=== PATIENT | male | born 2000 | race Caucasian/White ===

== ENCOUNTER 2024-02-17 20:35 | Emergency (ER) | payer BC, SELFPAY ==
[2024-02-17 20:50] VITALS: BP 150/88; PULSE 110; TEMP 37.3; O2SAT 98; BMI 46.1
--- NOTE | 2024-02-17 21:07 | ED_ITS ---
HPI - GI Bleed General Chief complaint: GI Bleed Stated complaint: Blood in Stool Time Seen by Provider: 02/17/24 21:00 Source: patient Mode of arrival: walk-in Limitations: no limitations History of Present Illness HPI Narrative: presents complaining blood from rectum after having a BM. States first noticed small amount of blood after BM about a month ago. Shameka experienced abdominal cramping and had BM and passed a larger amount of blood. After arriving here went to bathroom and had another BM but this time a small amount of blood. No vomiting or fever. Related Data Home Medications ?Medication ?Instructions ?Recorded ?Confirmed No Known Home Medications 02/17/24 02/17/24 Allergies Allergy/AdvReac Type Severity Reaction Status Date / Time No Known Drug Allergies Allergy Verified 02/17/24 20:50 Review of Systems ROS Status of ROS 10 or more systems reviewed and unremark able except as noted in history and below Exam Constitutional Vital Signs, click to edit/add: Last Vital Signs Temp 99.1 F 02/17/24 20:50 Pulse 108 H 02/17/24 22:25 Resp 16 02/17/24 22:25 BP 134/84 02/17/24 22:25 Pulse Ox 99 02/17/24 22:25 O2 Del Method Room Air 02/17/24 22:25 Common normals: no apparent distress, average body habitus, oriented x3, no limitations, healthy appearing, alert and well nourished [facility] Common normals: normocephalic and head/scalp atraumatic Eye Common normals: EOMs intact bilaterally Respiratory Common normals: normal respiratory effort, no retractions, no use of accessory muscles and clear to auscultation bilaterally Cardio Common normals: regular rate, regular rhythm, S1 normal heart sound and S2 normal heart sound GI Common normals: Normal to inspection, nondistended, normoactive bowel sounds present, soft to palpation and non-tender Extremity Common normals: normal to inspection and full ROM Neuro Common normals: oriented x3, CN's II-XII intact bilaterally, moves all extremities and no focal motor deficits Psych Appearance: grossly normal Course Vital Signs Vital signs: Vital Signs Temperature 99.1 F 02/17/24 20:50 Pulse Rate 110 H 02/17/24 20:50 Respiratory Rate 18 02/17/24 20:50 Blood Pressure 150/88 H 02/17/24 20:50 Pulse Oximetry 98 02/17/24 20:50 Oxygen Delivery Method Room Air 02/17/24 20:50 Temperature 99.1 F 02/17/24 20:50 Pulse Rate 108 H 02/17/24 22:25 Respiratory Rate 16 02/17/24 22:25 Blood Pressure 134/84 02/17/24 22:25 Pulse Oximetry 99 02/17/24 22:25 Oxygen Delivery Method Room Air 02/17/24 22:25 MDM - GI Bleed MDM Narrative Medical decision making narrative: patient presented complaining of blood per rectum. First noticed small amount about one month ago and occ since then. Tonight increased amount of blood that concerned him. After he arrived to the ER he had another BM and now there was very little blood again. No abdominal pain. CBC WNL. CT with findings of colitis. Patient medicated with flagyl and cipro and discharged home. Advised to follow up with his doctor as he will likely require colonoscopy as part of the workup Lab Data Labs: Lab Results 02/17/24 Range/Units 21:20 WBC 7.3 (4.0-11.0) 10^3/uL RBC 5.28 (4.70-6.10) 10^6/uL Hgb 15.2 (14.0-18.0) g/dL Hct 43.0 (42.0-54.0) % MCV 81.4 (80.0-94.0) fL MCH 28.8 (25.9-34.0) pg MCHC 35.3 H (29.9-35.2) g/dL RDW 12.7 (11.0-15.0) % Plt Count 288 (150-450) 10^3/uL MPV 9.1 L (9.5-13.5) fL Neut % (Auto) 54.8 (43.0-75.0) % Lymph % (Auto) 32.8 (20.5-60.0) % Vermilion % (Auto) 8.5 (1.7-12.0) % Eos % (Auto) 3.0 (0.9-7.0) % Baso % (Auto) 0.8 (0.2-2.0) % Neut # (Auto) 4.0 (1.4-6.5) 10^3/uL Lymph # (Auto) 2.4 (1.2-3.8) 10^3/uL Vermilion # (Auto) 0.6 (0.3-0.8) 10^3/uL Eos # (Auto) 0.2 (0.0-0.7) 10^3/uL Baso # (Auto) 0.1 (0.0-0.1) 10^3/uL Abs Immat Gran (auto) 0.01 (0.00-0.03) 10^3/uL Imm/Tot Granulo (auto) 0.1 (0.0-0.5) % Sodium 141 (136-145) mmol/L Potassium 3.6 (3.5-5.1) mmol/L Chloride 105 (98-107) mmol/L Carbon Dioxide 25.1 (21.0-32.0) mmol/L Anion Gap 14.5 BUN 13.0 (7.0-18.0) mg/dL Creatinine 0.85 (0.70-1.30) mg/dL Est GFR ( Amer) >60 (>=60) Est GFR (Non-Af Amer) >60 (>=60) BUN/Creatinine Ratio 15.3 Glucose 95 (74-106) mg/dL Calcium 8.9 (8.5-10.1) mg/dL Total Bilirubin 0.5 (0.2-1.0) mg/dL AST 14 L (15-37) U/L ALT 51 (16-63) U/L Alkaline Phosphatase 86 (46-116) U/L Total Protein 6.9 (6.4-8.2) g/dL Albumin 3.7 (3.4-5.0) g/dL Globulin 3.2 g/dL Albumin/Globulin Ratio 1.2 Imaging Data Abdominal x-ray: Radiologist's impression: ITS Impressions Abdomen/Pelvis CT 02/17/24 21:08 IMPRESSION: There is faint pericolonic fat stranding associated with the descending colon concerning for early acute colitis. Electronically authenticated by: VIC NAVARRO Date: 02/17/2024 23:07 Discharge Plan Discharge Stand Alone Forms: Portal Instructions Chief Complaint: GI Bleed Clinical Impression: Colitis Patient Disposition: Home, Self-Care Condition: Good Mode of Transportation: Private Vehicle Prescriptions / Home Meds: No Action No Known Home Medications Print Language: Kyrgyz Instructions: Colitis (ED) Additional Instructions: follow up with your doctor next week. Return if bleeding worsens Referrals: AGUILA ALVARADO [Primary Care Provider] - 1 week Discharge Date/Time: 02/17/24 23:45
--- NOTE | 2024-02-17 21:08 | CT_ITS ---
The [address] [address] Patient Name: SANDY METZGER MRN: [id number] date: 2000 Sex: M Assigned Patient Location: ER Current Patient Location: ED.MAIN Accession/Order Number: [id number] Exam Date: 02/17/2024 22:15 Report Date: 02/17/2024 23:07 At the request of: FRANKIE CUMMINGS Procedure: CT abdomen pelvis wo con EXAMINATION:CT abdomen pelvis wo con INDICATION:rectal bleed COMPARISON:None TECHNIQUE:Multiple thin section transaxial slices were acquired through the abdomen and pelvis without intravenous contrast. Coronal and sagittal reconstructed images were reviewed. Oral contrastWas not administered. FINDINGS: LOWER CHEST: The lower chest is unremarkable. LIVER: The liver is unremarkable. GALLBLADDER AND BILIARY SYSTEM: No obvious ductal dilation. No calcified stones. SPLEEN: The spleen is unremarkable. PANCREAS: The pancreas is unremarkable. ADRENAL GLANDS: The adrenal glands are unremarkable. KIDNEYS AND URETERS: There is no hydronephrosis of the kidneys.No obstructing urologic calcifications are present. VASCULATURE: Vascularity is unremarkable. PERITONEUM/RETROPERITONEUM: Peritoneum/retroperitoneum is unremarkable. LYMPH NODES: No suspicious lymphadenopathy. GASTROINTESTINAL TRACT: The bowel is normal in caliber.There is faint pericolonic fat stranding of the descending colon. This may represent mild colitis.The appendix is visualized and is not inflamed. BLADDER: The urinary bladder is unremarkable. REPRODUCTIVE SYSTEM: Reproductive system is unremarkable. BODY WALL: There is a tiny fat-containing umbilical hernia. BONES: Osseous structures are unremarkable. CT/CT abdomen pelvis wo con IMPRESSION: There is faint pericolonic fat stranding associated with the descending colon concerning for early acute colitis. Electronically authenticated by: VIC NAVARRO Date: 02/17/2024 23:07
[2024-02-17 21:28] LABS: Basophils Absolute Auto 0.1 10^3/uL (0.0-0.1); Basophils Percent Auto 0.8 % (0.2-2.0); Eosinophils Absolute Auto 0.2 10^3/uL (0.0-0.7); Hemoglobin 15.2 g/dL (14.0-18.0); Immature Granulocytes Abs Auto 0.01 10^3/uL (0.00-0.03); Immature Granulocytes Pct Auto 0.1 % (0.0-0.5); Lymphocytes Absolute Auto 2.4 10^3/uL (1.2-3.8); Lymphocytes Percent Auto 32.8 % (20.5-60.0); Mean Corpuscular HGB Conc 35.3 g/dL (29.9-35.2); Mean Corpuscular Hemoglobin 28.8 pg (25.9-34.0); Mean Corpuscular Volume 81.4 fL (80.0-94.0); Mean Platelet Volume 9.1 fL (9.5-13.5); Monocytes Absolute Auto 0.6 10^3/uL (0.3-0.8); Monocytes Percent Auto 8.5 % (1.7-12.0); Neutrophils Percent Auto 54.8 % (43.0-75.0); Platelet Count 288 10^3/uL (150-450); Red Blood Count 5.28 10^6/uL (4.70-6.10); Red Cell Distribution Width 12.7 % (11.0-15.0); White Blood Count 7.3 10^3/uL (4.0-11.0)
[2024-02-17 21:44] LABS: Alanine Aminotransferase 51 U/L (16-63); Albumin Globulin Ratio 1.2; Albumin Level 3.7 g/dL (3.4-5.0); Alkaline Phosphatase 86 U/L (46-116); Anion Gap 14.5; Aspartate Amino Transferase 14 U/L (15-37); BUN Creatinine Ratio 15.3; Bilirubin Total 0.5 mg/dL (0.2-1.0); Calcium 8.9 mg/dL (8.5-10.1); Carbon Dioxide 25.1 mmol/L (21.0-32.0); Chloride 105 mmol/L (98-107); Estimated GFR (African America >60 (>=60); Estimated GFR (Non-African Ame >60 (>=60); Globulin 3.2 g/dL; Glucose 95 mg/dL (74-106); Potassium 3.6 mmol/L (3.5-5.1); Sodium 141 mmol/L (136-145); Total Protein 6.9 g/dL (6.4-8.2)
[2024-02-17 22:25] VITALS: BP 134/84; PULSE 108; O2SAT 99
[2024-02-17] MEDS: METRONIDAZOLE 250 MG TABLET 500 MG PO (23:39)
[2024-02-17] MEDS: CIPROFLOXACIN HCL 500 MG TABLET PO (23:40)
== END 2024-02-17 23:45 | disposition home or self-care (01) ==
PROVIDERS: Emergency Provider Internal Medicine; PCP Family Medicine
DX: K52.9 Noninfective gastroenteritis and colitis, unspecified (principal)
CPT/HCPCS: 36415; 74176; 80053; 85025; 99284

== ENCOUNTER 2024-04-26 02:10 | Emergency (ER) | payer BC, SELFPAY ==
[2024-04-26 02:13] VITALS: BP 148/94; PULSE 105; TEMP 36.8; O2SAT 98; BMI 44.9
--- OUTSIDE RECORDS SUMMARY | 2024-04-26 02:15 | XMS_ITS | CCD ---
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 d)Ordered By: PROVIDER TEMP on 07-27-2022 Lymphocytes/100 WBC (Bld) 15.5 % . [facility] MCH Auto (RBC) [Entitic mass ]Ordered By: PROVIDER TEMP on 07-27-2022 MCH (RBC) [Entitic mass] 29.9 pg 27.5-35.2 [facility] MCHC Auto (RBC) [Mass/Vol]Or dered By: PROVIDER TEMP on 07-27-2022 MCHC (RBC) [Mass/Vol] 34.5 g/dL 32.5-35.6 [facility] MCV Auto (RBC) [Entitic vol] Ordered By: PROVIDER TEMP on 07-27-2022 MCV (RBC) [Entitic vol] 86.5 fL 83.5-101 F [facility] Monocyte distribution width [Entitic volume] in Blood by AutomatedOrdered By: PROVIDER TEMP on 07-27-2022 Monocyte distribution width Auto (Bld) [Entitic vol] 17.12 % 0.00-20.00 [facility] Monocytes Auto (Bld) [#/Vol] Ordered By: PROVIDER TEMP on 07-27-2022 Monocytes (Bld) [#/Vol] 0.7 10*3/uL 0.0-0.8 [facility] Monocytes/100 WBC Auto (Bld) Ordered By: PROVIDER TEMP on 07-27-2022 Monocytes/100 WBC (Bld) 7.2 % . [facility] Neutrophils Auto (Bld) [#/Vo l]Ordered By: PROVIDER TEMP on 07-27-2022 Neutrophils (Bld) [#/Vol] 7.6 10*3/uL 1.8-7.7 [facility] Neutrophils/100 WBC Auto (Bl d)Ordered By: PROVIDER TEMP on 07-27-2022 Neutrophils/100 WBC (Bld) 75.9 % . [facility] Nitrite Test strip Ql (U)Ord ered By: Yoandy Tam on 07-27-2022 Nitrite Ql (U) Negative Negative [facility] No Panel InformationOrdered By: PROVIDER TEMP on 07-27-2022 Estimated GFR () > 60 mL/Min [facility] Comment on above: GFR estimated refere nce range: According to KDOQI guidelines, <60 ml/min/1.73m2 is sufficient to diagnose a patient with chronic kidney disease. Pharmacy Creatinine Clearance (Chem 201.93 [facility] Nucleated erythrocytes [Pres ence] in Blood by Automated countOrdered By: PROVIDER TEMP on 07-27-2022 Nucleated RBC Auto Ql (Bld) 0.0 /100{WBC} 0-0.5 [facility] Phencyclidine Screen Ql (U)O rdered By: PROVIDER TEMP on 07-27-2022 Phencyclidine Ql (U) Negative Negative [facility] Platelet mean volume Auto (B ld) [Entitic vol]Ordered By: PROVIDER TEMP on 07-27-2022 Platelet mean volume (Bld) [Entitic vol] 7.7 fL 6.6-10.1 [facility] Platelets Auto (Bld) [#/Vol] Ordered By: PROVIDER TEMP on 07-27-2022 Platelets (Bld) [#/Vol] 277 10*3/uL 150-450 [facility] Protein Auto test strip (U) [Mass/Vol]Ordered By: Yoandy Tam on 07-27-2022 Protein (U) [Mass/Vol] Trace mg/dL Negative F [facility] Protein [Mass/volume] in Ser um or PlasmaOrdered By: PROVIDER TEMP on 07-27-2022 Protein [Mass/Vol] 7.3 g/dL 6.1-7.9 [facility] RBC Auto (Bld) [#/Vol]Ordere d By: PROVIDER TEMP on 07-27-2022 RBC (Bld) [#/Vol] 5.54 10*6/uL 3.90-5.60 [facility] Serum or plasma alanine klein otransferase measurement without P-5'-P (enzymatic activiOrdered By: PROVIDER TEMP on 07-27-2022 ALT No additional P-5'-P [Catalytic activity/Vol] 25 U/L 10-60 [facility] Serum or plasma albumin/glob ulin mass ratioOrdered By: PROVIDER TEMP on 07-27-2022 Albumin/Globulin [Mass ratio] 1.7 {ratio} [facility] Serum or plasma alkaline brandt sphatase measurement (enzymatic activity/volume)Ordered By: PROVIDER TEMP on 07-27-2022 ALP [Catalytic activity/Vol] 61 U/L 32-92 [facility] Serum or plasma anion gap de terminationOrdered By: PROVIDER TEMP on 07-27-2022 Anion gap [Moles/Vol] 16.4 mmol/L 6.0-15.0 [facility] Serum or plasma aspartate am inotransferase measurement (enzymatic activity/volume)Ordered By: PROVIDER TEMP on 07-27-2022 AST [Catalytic activity/Vol] 20 U/L 10-42 [facility] Serum or plasma calcium pearl urement (mass/volume)Ordered By: PROVIDER TEMP on 07-27-2022 Calcium [Mass/Vol] 9.7 mg/dL 8.2-10.2 [facility] Serum or plasma chloride casie surement (moles/volume)Ordered By: PROVIDER TEMP on 07-27-2022 Chloride [Moles/Vol] 103 mmol/L 95-114 [facility] Serum or plasma creatine kin ase MB (CKMB)/total creatine kinase (CK) ratio by calculaOrdered By: PROVIDER TEMP on 07-27-2022 CK.MB Calc [Catalytic fraction] 1.7 % 0.00-2.50 [facility] Serum or plasma creatine kin ase MB measurement (mass/volume)Ordered By: PROVIDER TEMP on 07-27-2022 CK.MB [Mass/Vol] 2.3 ng/mL 0.6-6.3 [facility] Serum or plasma glucose pearl urement (mass/volume)Ordered By: PROVIDER TEMP on 07-27-2022 Glucose [Mass/Vol] 101 mg/dL 70-100 [facility] Comment on above: ADA recommended refe rence rangeRandom Glucose Reference Range is dependent on time and content of last meal. Glucose of more than 200 mg/dL in a nonstressed, ambulatory subject supports the diagnosis of Diabetes Mellitus. Serum or plasma potassium me asurement (moles/volume)Ordered By: PROVIDER TEMP on 07-27-2022 Potassium [Moles/Vol] 3.0 mmol/L 3.5-5.1 [facility] Serum or plasma sodium measu rement (moles/volume)Ordered By: PROVIDER TEMP on 07-27-2022 Sodium [Moles/Vol] 137 mmol/L 136-146 [facility] Serum or plasma total biliru bin measurement (mass/volume)Ordered By: PROVIDER TEMP on 07-27-2022 Bilirubin [Mass/Vol] 0.6 mg/dL 0.3-1.2 [facility] Serum or plasma total carbon dioxide measurement (moles/volume)Ordered By: PROVIDER TEMP on 07-27-2022 CO2 [Moles/Vol] 20.6 mmol/L 22.0-30.0 [facility] Serum or plasma urea nitroge n measurement (mass/volume)Ordered By: PROVIDER TEMP on 07-27-2022 Urea nitrogen [Mass/Vol] 8 mg/dL 9-23 [facility] Specific gravity Auto test s trip (U) [Rel density]Ordered By: Yoandy Tam on 07-27-2022 Specific gravity (U) [Rel density] 1.023 1.001-1.030 [facility] Squamous epithelial cells de tection in urine sediment by light microscopyOrdered By: Yoandy Tam on 07-27-2022 Epithelial cells.squamous LM Ql (Urine sed) None seen [HPF] 0-2 [facility] Troponin I.cardiac [Mass/vol ume] in Serum or Plasma by High sensitivity methodOrdered By: [facility]ER [facility] on [facility]22 Troponin I.cardiac High sensitivity method [Mass/Vol] 4 pg/mL 0-20 [facility] Urine bacteria detection by automated methodOrdered By: Yoandy Tam on 07-27-2022 Bacteria Auto Ql (U) None seen None Seen [facility] Urine clarity by refractomet ry automatedOrdered By: Yoandy Tam on 07-27-2022 Clarity Refractometry automated (U) Clear Clear [facility] Urine cocaine detectionOrder ed By: PROVIDER GHISLAINE on 07-27-2022 Cocaine Ql (U) Negative Negative [facility] Urine glucose measurement by automated test strip (mass/volume)Ordered By: Yoandy Tam on 07-27-2022 Glucose Auto test strip (U) [Mass/Vol] Normal mg/dL Normal [facility] Urine hemoglobin detection b y automated test stripOrdered By: Yoandy Tam on 07-27-2022 Hemoglobin Auto test strip Ql (U) Negative Negative [facility] Urine leukocyte esterase det ection by automated test stripOrdered By: Yoandy Tam on 07-27-2022 Leukocyte esterase Auto test strip Ql (U) Negative Negative [facility] Urobilinogen Auto test strip (U) [Mass/Vol]Ordered By: Yoandy Tam on 07-27-2022 Urobilinogen (U) [Mass/Vol] Normal mg/dL Normal [facility] WBC Auto (Bld) [#/Vol]Ordere d By: PROVIDER GHISLAINE on 07-27-2022 WBC (Bld) [#/Vol] 10.0 10*3/uL 4.1-10.5 [facility] pH Auto test strip (U)Ordere d By: Yoandy Tam on 07-27-2022 pH (U) 8.5 [pH] 5.0-9.0 [facility] Albumin [Mass/volume] in Ser um or PlasmaOrdered By: Scotty Tabares on 07-02-2022 Albumin [Mass/Vol] 4.2 g/dL 3.2-5.5 [facility] Basophils Auto (Bld) [#/Vol] Ordered By: Scotty Tabares on 07-02-2022 Basophils (Bld) [#/Vol] 0.1 10*3/uL 0.0-0.2 [facility] Basophils/100 WBC Auto (Bld) Ordered By: Scotty Tabares on 07-02-2022 Basophils/100 WBC (Bld) 0.7 % . [facility] COVID + FLU Quick Testingon 07-02-2022 SARS-CoV-2 (COVID-19) RNA LEOPOLDO+probe Ql (Unsp spec) Negative [employer] Other COVID + FLU Quick Testing Negative [employer] Other Cholesterol [Mass/volume] in Serum or PlasmaOrdered By: Scotty Tabares on 07-02-2022 Cholesterol [Mass/Vol] 162 mg/dL 140-200 [facility] Comment on above: Chol less than 200 m g/dl low riskChol 201-239 mg/dl borderline riskChol 240 mg/dl and greater high risk Cholesterol in LDL Calc [Mas s/Vol]Ordered By: Scotty Tabares on 07-02-2022 Cholesterol in LDL [Mass/Vol] 95 mg/dL 0-100 [facility] Comment on above: LDL ATP III CLASSIFI CATIONLDL less than 100 mg/dL OptimalLDL 100-129 mg/dL Near or above optimalLDL 130-159 mg/dL Borderline highLDL 160-189 mg/dL HighLDL greater than 189 mg/dL Very high Cholesterol in VLDL Calc [Ma ss/Vol]Ordered By: Scotty Tabares on 07-02-2022 Cholesterol in VLDL [Mass/Vol] 16 mg/dL [facility] Creatinine and Glomerular fi ltration rate.predicted panel (S/P/Bld)Ordered By: Scotty Tabares on 07-02-2022 Creatinine [Mass/Vol] 0.77 mg/dL 0.64-1.27 [facility] Eosinophils Auto (Bld) [#/Vo l]Ordered By: Scotty Tabares on 07-02-2022 Eosinophils (Bld) [#/Vol] 0.1 10*3/uL 0.0-0.45 [facility] Eosinophils/100 WBC Auto (Bl d)Ordered By: Scotty Tabares on 07-02-2022 Eosinophils/100 WBC (Bld) 1.3 % . [facility] Erythrocyte distribution wid th Auto (RBC) [Ratio]Ordered By: Scotty Tabares on 07-02-2022 Erythrocyte distribution width (RBC) [Ratio] 13.8 % 12.0-14.8 [facility] Estimated glomerular filtrat ion rate (GFR) non- AmericanOrdered By: Scotty Tabares on 07-02-2022 GFR/1.73 sq M.predicted among non-blacks MDRD (S/P/Bld) [Vol rate/Area] > 60 mL/Min [facility] Globulin Calc (S) [Mass/Vol] Ordered By: Scotty Tabares on 07-02-2022 Globulin (S) [Mass/Vol] 2.7 g/dL [facility] Hematocrit Auto (Bld) [Volum e fraction]Ordered By: Scotty Tabares on 07-02-2022 Hematocrit (Bld) [Volume fraction] 47.3 % 38.8-50.0 [facility] Hemoglobin [Mass/volume] in BloodOrdered By: Scotty Tabares on 07-02-2022 Hemoglobin (Bld) [Mass/Vol] 16.2 g/dL 13.0-17.0 [facility] Leukocytes [#/volume] correc suzi for nucleated erythrocytes in Blood by Automated counOrdered By: Scotty Tabares on 07-02-2022 WBC corrected for nucl RBC Auto (Bld) [#/Vol] 8.0 10*3/uL 4.1-10.5 [facility] Lymphocytes Auto (Bld) [#/Vo l]Ordered By: Scotty Tabares on 07-02-2022 Lymphocytes (Bld) [#/Vol] 2.0 10*3/uL 1.00-4.8 [facility] Lymphocytes/100 WBC Auto (Bl d)Ordered By: Scotty Tabares on 07-02-2022 Lymphocytes/100 WBC (Bld) 25.0 % . [facility] MCH Auto (RBC) [Entitic mass ]Ordered By: Scotty Tabares on 07-02-2022 MCH (RBC) [Entitic mass] 29.9 pg 27.5-35.2 [facility] MCHC Auto (RBC) [Mass/Vol]Or dered By: Scotty Tabares on 07-02-2022 MCHC (RBC) [Mass/Vol] 34.2 g/dL 32.5-35.6 [facility] MCV Auto (RBC) [Entitic vol] Ordered By: Scotty Tabares on 07-02-2022 MCV (RBC) [Entitic vol] 87.3 fL 83.5-101 F [facility] Monocytes Auto (Bld) [#/Vol] Ordered By: Scotty Tabares on 07-02-2022 Monocytes (Bld) [#/Vol] 0.5 10*3/uL 0.0-0.8 [facility] Monocytes/100 WBC Auto (Bld) Ordered By: Scotty Tabares on 07-02-2022 Monocytes/100 WBC (Bld) 6.2 % . [facility] Neutrophils Auto (Bld) [#/Vo l]Ordered By: Scotty Tabares on 07-02-2022 Neutrophils (Bld) [#/Vol] 5.3 10*3/uL 1.8-7.7 [facility] Neutrophils/100 WBC Auto (Bl d)Ordered By: Scotty Tabares on 07-02-2022 Neutrophils/100 WBC (Bld) 66.8 % . [facility] No Panel InformationOrdered By: Scotty Tabares on 07-02-2022 Estimated GFR () > 60 mL/Min [facility] Comment on above: GFR estimated refere nce range: According to KDOQI guidelines, <60 ml/min/1.73m2 is sufficient to diagnose a patient with chronic kidney disease. Pharmacy Creatinine Clearance (Chem N/A [facility] Nucleated erythrocytes [Pres ence] in Blood by Automated countOrdered By: Scotty Tabares on 07-02-2022 Nucleated RBC Auto Ql (Bld) 0.1 /100{WBC} 0-0.5 [facility] Platelet mean volume Auto (B ld) [Entitic vol]Ordered By: Scotty Tabares on 07-02-2022 Platelet mean volume (Bld) [Entitic vol] 7.9 fL 6.6-10.1 [facility] Platelets Auto (Bld) [#/Vol] Ordered By: Scotty Tabares on 07-02-2022 Platelets (Bld) [#/Vol] 292 10*3/uL 150-450 [facility] Protein [Mass/volume] in Ser um or PlasmaOrdered By: Scotty Tabares on 07-02-2022 Protein [Mass/Vol] 6.9 g/dL 6.1-7.9 [facility] RBC Auto (Bld) [#/Vol]Ordere d By: Scotty Tabares on 07-02-2022 RBC (Bld) [#/Vol] 5.41 10*6/uL 3.90-5.60 [facility] Serum or plasma alanine klein otransferase measurement without P-5'-P (enzymatic activiOrdered By: Scotty Tabares on 07-02-2022 ALT No additional P-5'-P [Catalytic activity/Vol] 25 U/L 10-60 [facility] Serum or plasma albumin/glob ulin mass ratioOrdered By: Scotty Tabares on 07-02-2022 Albumin/Globulin [Mass ratio] 1.6 {ratio} [facility] Serum or plasma alkaline brandt sphatase measurement (enzymatic activity/volume)Ordered By: Scotty Tabares on 07-02-2022 ALP [Catalytic activity/Vol] 71 U/L 32-92 [facility] Serum or plasma anion gap de terminationOrdered By: Scotty Tabares on 07-02-2022 Anion gap [Moles/Vol] 9.9 mmol/L 6.0-15.0 [facility] Serum or plasma aspartate am inotransferase measurement (enzymatic activity/volume)Ordered By: Scotty Tabares on 07-02-2022 AST [Catalytic activity/Vol] 20 U/L 10-42 [facility] Serum or plasma calcium pearl urement (mass/volume)Ordered By: Scotty Tabares on 07-02-2022 Calcium [Mass/Vol] 9.5 mg/dL 8.2-10.2 [facility] Serum or plasma chloride casie surement (moles/volume)Ordered By: Scotty Tabares on 07-02-2022 Chloride [Moles/Vol] 106 mmol/L 95-114 [facility] Serum or plasma glucose pearl urement (mass/volume)Ordered By: Scotty Tabares on 07-02-2022 Glucose [Mass/Vol] 92 mg/dL 70-100 [facility] Comment on above: ADA recommended refe rence rangeRandom Glucose Reference Range is dependent on time and content of last meal. Glucose of more than 200 mg/dL in a nonstressed, ambulatory subject supports the diagnosis of Diabetes Mellitus. Serum or plasma high density lipoprotein (HDL) cholesterol measurementOrdered By: Scotty Tabares on 07-02-2022 Cholesterol in HDL [Mass/Vol] 51 mg/dL 29-71 [facility] Comment on above: HDL CHOL ATP-III CLA SSIFICATION Cardiovascular RiskHDL > or equal to 60 mg/dL LOWHDL < 40 mg/dL HIGH Serum or plasma potassium me asurement (moles/volume)Ordered By: Scotty Tabares on 07-02-2022 Potassium [Moles/Vol] 4.3 mmol/L 3.5-5.1 [facility] Serum or plasma sodium measu rement (moles/volume)Ordered By: Scotty Tabares on 07-02-2022 Sodium [Moles/Vol] 139 mmol/L 136-146 [facility] Serum or plasma total biliru bin measurement (mass/volume)Ordered By: Scotty Tabares on 07-02-2022 Bilirubin [Mass/Vol] 0.5 mg/dL 0.3-1.2 [facility] Serum or plasma total carbon dioxide measurement (moles/volume)Ordered By: Scotty Tabares on 07-02-2022 CO2 [Moles/Vol] 27.4 mmol/L 22.0-30.0 [facility] Serum or plasma total choles terol/high density lipoprotein (HDL) cholesterol mass ratOrdered By: Scotty Tabares on 07-02-2022 Cholesterol.total/Karina sterol in HDL [Mass ratio] 3.2 {ratio} <5.0 [facility] Serum or plasma urea nitroge n measurement (mass/volume)Ordered By: Scotty Tabares on 07-02-2022 Urea nitrogen [Mass/Vol] 11 mg/dL 9-23 [facility] TSH DL <= 0.005 mIU/L QnOrde red By: Scotty Tabares on 07-02-2022 TSH Qn 1.03 m[IU]/L 0.45-5.33 [facility] Triglyceride [Mass/volume] i n Serum or PlasmaOrdered By: Scotty Tabares on 07-02-2022 Triglyceride [Mass/Vol] 80 mg/dL 35-149 [place] Comment on above: TRIG ATP III CLASSIF ICATIONTRIG less than 150 mg/dL NormalTRIG 150-199 mg/dL Borderline highTRIG 200-500 mg/dL High TRIG greater than 500 mg/dL Very highStandard traceable to the Center for Disease Conrtrol and Prevention (CDC) test method. WBC Auto (Bld) [#/Vol]Ordere d By: Scotty Rayshawn on 07-02-2022 WBC (Bld) [#/Vol] 8.0 10*3/uL 4.1-10.5 [facility] COVID Quick Testingon 2020 Result Negative [facility] [employer] Other COVID + FLU Quick Testingon 07-10-2021 SARS-CoV-2 (COVID-19) RNA LEOPOLDO+probe Ql (Unsp spec) Positive [facility] [employer] Other COVID + FLU Quick Testing Negative [facility] [employer] Other Vital Signs Date Time Vital Sign Value Performing Clinician Facility 04-10-2024 09:45-0400 Diastolic blood pressure 81 mm[Hg] DO Scotty [employer] Work Phone: [facility] 04-10-2024 09:45-0400 Heart rate 69 /min DO Scotty [employer] Work Phone: [facility] 04-10-2024 09:45-0400 Respiratory rate 16 /min DO Scotty [employer] Work Phone: [facility] 04-10-2024 09:45-0400 SaO2% (BldA) [Mass fraction] 100 % DO Scotty [employer] Work Phone: [facility] 04-10-2024 09:45-0400 Systolic blood pressure 123 mm[Hg] DO Scotty [employer] Work Phone: [facility] 04-10-2024 07:42-0400 Body height 185.42 cm DO Scotty [employer] Work Phone: [facility] 04-10-2024 07:42-0400 Body weight 154.22 kg DO Scotty [employer] Work Phone: [facility] 09-13-2023 15:02-0500 Body height 185.42 cm DO Scotty [employer]uns Work Phone: [facility] 09-13-2023 15:02-0500 Body mass index (BMI) [Ratio] 43.5 kg/m2 DO Scotty Kuns Work Phone: [facility] 09-13-2023 15:02-0500 Body weight 149.68 kg DO Scotty Kuns Work Phone: [facility] 09-13-2023 15:02-0500 Diastolic blood pressure 80 mm[Hg] DO Scotty Kuns Work Phone: [facility] 09-13-2023 15:02-0500 Heart rate 97 /min DO Scotty Kuns Work Phone: [facility] 09-13-2023 15:02-0500 Respiratory rate 18 /min DO Scotty Kuns Work Phone: [facility] 09-13-2023 15:02-0500 Systolic blood pressure 118 mm[Hg] DO Scotty Kuns Work Phone: [facility] 09-10-2023 23:44-0500 Diastolic blood pressure 62 mm[Hg] DO Scotty Kuns Work Phone: [facility] 09-10-2023 23:44-0500 Heart rate 119 /min DO Scotty Kuns Work Phone: [facility] 09-10-2023 23:44-0500 Respiratory rate 17 /min DO Scotty Kuns Work Phone: [facility] 09-10-2023 23:44-0500 SaO2% (BldA) [Mass fraction] 97 % DO Scotty Kuns Work Phone: [facility] 09-10-2023 23:44-0500 Systolic blood pressure 133 mm[Hg] DO Scotty Kuns Work Phone: [facility] 09-10-2023 22:39-0500 Body height 185.42 cm DO Scotty Kuns Work Phone: [facility] 09-10-2023 22:39-0500 Body temperature 99.1 [degF] DO Scotty Kuns Work Phone: [facility] 09-10-2023 22:39-0500 Body weight 153.7 kg DO Scotty Kuns Work Phone: [facility] 08-12-2022 11:00-0500 Body height 185.42 cm Scotty Kuns Other [facility] [employer] Other 08-12-2022 11:00-0500 Body mass index (BMI) [Ratio] 34.56 kg/m2 Scotty Wilmans Other [employer] Other 08-12-2022 11:00-0500 Body weight 118.84 kg Scotty Wilmans Other [employer] Other 08-12-2022 11:00-0500 Diastolic blood pressure 80 mm[Hg] Scotty Kuns Other [employer] Other 08-12-2022 11:00-0500 Respiratory rate 18 /min Scotty Wilmans Other [employer] Other 08-12-2022 11:00-0500 SaO2% (BldA) [Mass fraction] 99 % Scotty Kuns Other [employer] Other 08-12-2022 11:00-0500 Systolic blood pressure 125 mm[Hg] Scotty Kuns Other [employer] Other 07-27-2022 23:22-0500 Diastolic blood pressure 61 mm[Hg] DO Scotty Kuns Work Phone: [facility] 07-27-2022 23:22-0500 Heart rate 90 /min DO Scotty Kuns Work Phone: [facility] 07-27-2022 23:22-0500 Respiratory rate 18 /min DO Scotty Kuns Work Phone: [facility] 07-27-2022 23:22-0500 SaO2% (BldA) [Mass fraction] 98 % DO Scotty Kuns Work Phone: [facility] 07-27-2022 23:22-0500 Systolic blood pressure 118 mm[Hg] DO Scotty Kuns Work Phone: [facility] 07-27-2022 16:14-0500 Body height 185.42 cm DO Scotty Kuns Work Phone: [facility] 07-27-2022 16:14-0500 Body temperature 98.2 [degF] DO Scotty Kuns Work Phone: [facility] 07-27-2022 16:14-0500 Body weight 122.46 kg DO Scotty Kuns Work Phone: [facility] 05-06-2022 12:00-0400 Body height 185.42 cm Scotty [employer] Other [facility] [employer] Other 05-06-2022 12:00-0400 Body mass index (BMI) [Ratio] 36.41 kg/m2 [employer] Other [employer] Other 05-06-2022 12:00-0400 Body weight 125.19 kg Scotty [employer] Other [employer] Other 05-06-2022 12:00-0400 Diastolic blood pressure 75 mm[Hg] Scotty [employer] Other [employer] Other 05-06-2022 12:00-0400 Respiratory rate 18 /min Scotty Kuns Other [employer] Other 05-06-2022 12:00-0400 SaO2% (BldA) [Mass fraction] 96 % Scotty Kuns Other [employer] Other 05-06-2022 12:00-0400 Systolic blood pressure 125 mm[Hg] Scotty Kuns Other [employer] Other 04-01-2022 13:45-0400 Body height 185.42 cm Scotty Kuns Other [employer] Other 04-01-2022 13:45-0400 Body mass index (BMI) [Ratio] 36.94 kg/m2 Scotty Kuns Other [employer] Other 04-01-2022 13:45-0400 Body weight 127.01 kg Scotty Kuns Other [employer] Other 04-01-2022 13:45-0400 Diastolic blood pressure 70 mm[Hg] Scotty Kuns Other [employer] Other 04-01-2022 13:45-0400 Respiratory rate 18 /min Scotty Kuns Other [employer] Other 04-01-2022 13:45-0400 SaO2% (BldA) [Mass fraction] 97 % Scotty Kuns Other [employer] Other 04-01-2022 13:45-0400 Systolic blood pressure 125 mm[Hg] Scotty Kuns Other [employer] Other 01-28-2022 14:30-0400 Body height 185.42 cm Scotty Kuns Other [employer] Other 01-28-2022 14:30-0400 Body mass index (BMI) [Ratio] 39.84 kg/m2 Scotty Kuns Other [employer] Other 01-28-2022 14:30-0400 Body weight 136.99 kg Scotty Kuns Other [employer] Other 01-28-2022 14:30-0400 Diastolic blood pressure 70 mm[Hg] Scotty Kuns Other [employer] Other 01-28-2022 14:30-0400 Respiratory rate 16 /min Scotty Kuns Other [employer] Other 01-28-2022 14:30-0400 SaO2% (BldA) [Mass fraction] 97 % Scotty Kuns Other [employer] Other 01-28-2022 14:30-0400 Systolic blood pressure 110 mm[Hg] Scotty Kuns Other [employer] Other 12-24-2021 14:45-0400 Body height 185.42 cm Scotty Kuns Other [employer] Other 12-24-2021 14:45-0400 Body mass index (BMI) [Ratio] 40.9 kg/m2 Scotty Kuns Other [employer] Other 12-24-2021 14:45-0400 Body weight 140.62 kg Scotty Kuns Other [employer] Other 12-24-2021 14:45-0400 Diastolic blood pressure 72 mm[Hg] Scotty Kuns Other [employer] Other 12-24-2021 14:45-0400 Respiratory rate 18 /min Scotty Kuns Other [employer] Other 12-24-2021 14:45-0400 SaO2% (BldA) [Mass fraction] 98 % Scotty Kuns Other [employer] Other 12-24-2021 14:45-0400 Systolic blood pressure 128 mm[Hg] Scotty Kuns Other [employer] Other 11-09-2021 08:30-0400 Body height 185.42 cm Scotty Kuns Other [employer] Other 11-09-2021 08:30-0400 Body mass index (BMI) [Ratio] 43.4 kg/m2 Scotty Kuns Other [employer] Other 11-09-2021 08:30-0400 Body weight 149.23 kg Scotty Kuns Other [employer] Other 11-09-2021 08:30-0400 Diastolic blood pressure 70 mm[Hg] Scotty Kuns Other [employer] Other 11-09-2021 08:30-0400 Respiratory rate 18 /min Scotty Kuns Other [employer] Other 11-09-2021 08:30-0400 SaO2% (BldA) [Mass fraction] 96 % Scotty Kuns Other [employer] Other 11-09-2021 08:30-0400 Systolic blood pressure 130 mm[Hg] Scotty Kuns Other [employer] Other 10-29-2021 13:30-0400 Body height 185.42 cm Scotty Kuns Other [employer] Other 10-29-2021 13:30-0400 Body mass index (BMI) [Ratio] 42.87 kg/m2 Scotty Kuns Other [employer] Other 10-29-2021 13:30-0400 Body weight 147.42 kg Scotty Kuns Other [employer] Other 10-29-2021 13:30-0400 Diastolic blood pressure 74 mm[Hg] Scotty Kuns Other [employer] Other 10-29-2021 13:30-0400 Respiratory rate 16 /min Scotty Kuns Other [employer] Other 10-29-2021 13:30-0400 SaO2% (BldA) [Mass fraction] 97 % Scotty Kuns Other [employer] Other 10-29-2021 13:30-0400 Systolic blood pressure 116 mm[Hg] Scotty Kuns Other [employer] Other 10-08-2021 13:30-0400 Body height 185.42 cm Scotty Kuns Other [employer] Other 10-08-2021 13:30-0400 Body mass index (BMI) [Ratio] 43.01 kg/m2 Scotty Kuns Other [employer] Other 10-08-2021 13:30-0400 Body weight 147.87 kg Scotty Kuns Other [employer] Other 10-08-2021 13:30-0400 Diastolic blood pressure 80 mm[Hg] Scotty Kuns Other [employer] Other 10-08-2021 13:30-0400 Respiratory rate 16 /min Scotty Kuns Other [employer] Other 10-08-2021 13:30-0400 SaO2% (BldA) [Mass fraction] 97 % Scotty Kuns Other [employer] Other 10-08-2021 13:30-0400 Systolic blood pressure 124 mm[Hg] Scotty Kuns Other [employer] Other 07-10-2021 14:30-0500 Body height 185.42 cm Scotty Kuns Other [employer] Other 07-10-2021 14:30-0500 Body mass index (BMI) [Ratio] 44.85 kg/m2 Scotty Kuns Other [employer] Other 07-10-2021 14:30-0500 Body weight 154.22 kg Scotty Kuns Other [employer] Other Encounters Encounter Date Encounter Type Care Provider Facility Start: 04-10-2024 Non-patient / Non-visit DO Scotty Kuns Work Phone: [facility] Gastroenterology Work Phone: Start: 04-10-2024 End: 04-10-2024 Admission to same day surgery center DO Scotty Kuns Work Phone: [facility] Work Phone: Start: 04-10-2024 End: 04-10-2024 ambulatory DO Scotty Kuns Work Phone: [facility] Work Phone: Start: 02-20-2024 Non-patient / Non-visit DO Scotty Kuns Work Phone: [facility] Family Medicine [place] Work Phone: Start: 02-17-2024 Non-patient / Non-visit DO Scotty Kuns Work Phone: [facility] Work Phone: Start: 09-13-2023 End: 09-13-2023 ambulatory DO Scotty Kuns Work Phone: [facility] Work Phone: Start: 09-13-2023 End: 09-13-2023 Patient encounter procedure DO Scotty Kuns Work Phone: [facility] Family Medicine [place] Work Phone: Start: 09-10-2023 End: 09-11-2023 Emergency department patient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 2023 Mal Parker DO Emergency Provider Active Start: September 10, 2023 End: September 11, 2023 Team Status: Inactive Member Role Status Peyton Tabares DO Primary Care Provide r, Attending Provider Active Start: September 13, 2023 End: September 13, 2023 Goals (unrecognized section and content) Goals may be documented in a n alternate section (unrecognized sect ion and content) No Status Records Found INFORMATION SOURCE (unrecogn ized section and content) DATE CREATED AUTHOR 04/18/2024 [facility] FOR RECORDS PERTAINING TO PATIENTS WHO ARE OR HAVE BEEN ENROLLED IN A CHEMICAL DEPENDENCY/SUBSTANCEABUSE PROGRAM, SOME INFORMATION MAY BE OMITTED. This clinical summary was aggregated from multiple sources. Caution should be exercised in using it in the provision of clinical care. This summary normalizes information from multiple sources, and as a consequence, information in this document may materially change the coding, format and clinical context of patient data. In addition, data may be omitted in some cases. CLINICAL DECISIONS SHOULD BE BASED ON THE PRIMARY CLINICAL RECORDS. [facility] [employer] [facility]. provides no warranty or guarantee of the accuracy or completeness of information in this document.
--- NOTE | 2024-04-26 02:25 | ED_ITS ---
HPI - Nausea/Vomiting/Diarrhea General Chief complaint: Nausea/Vomiting/Diarrhea Stated complaint: HEADACHE VOMITTING diarrhea Time Seen by Provider: 04/26/24 02:18 Source: patient Mode of arrival: walk-in Limitations: no limitations History of Present Illness HPI Narrative: This 24-year-old male presents for evaluation of a headache for the past week and nausea vomiting and diarrhea that started in the past several days. He states he has had episodes where he has had chills but has not had a fever. His headache is mid temporal and throbbing in nature. He denies any thunderclap presentation of the headache. He has no neck pain or stiffness. The patient was seen here several months ago for colitis and had a colonoscopy afterwards and had a polyp removed. He has not had any GI problems since that time until several days ago. He denies alcohol use. He does not smoke cigarettes but does vape at times. He has no chest pain or shortness of breath. He denies any dizziness or syncope. He has no focal weakness numbness or tingling. Related Data Home Medications ?Medication ?Instructions ?Recorded ?Confirmed No Known Home Medications 02/17/24 04/26/24 Allergies Allergy/AdvReac Type Severity Reaction Status Date / Time No Known Drug Allergies Allergy Verified 04/26/24 02:17 Review of Systems ROS Status of ROS 10 or more systems reviewed and unremark able except as noted in history and below PFSH PFSH Social History Little interest or pleasure in doing things: not at all Feeling down, depressed, or hopeless: not at all Exam Narrative Exam Narrative: Vital signs and Nursing Notes reviewed: Patient is afebrile, he is mildly tachycardic with a pulse of 105, blood pressure is elevated at 148/94, he is not hypoxic with pulse ox of 98% on room air General: Awake, alert, oriented, nontoxic but uncomfortable appearing moderately overweight adult male, he is rubbing his forehead, no respiratory distress, no active vomiting HEENT: Normocephalic atraumatic, mucous membranes are moist and pink, eyes are clear, normal conjunctiva, vision is grossly intact, posterior pharynx is normal in appearance. Neck: Supple, no meningeal signs, no anterior or posterior cervical lymphadenopathy Chest: Lungs are clear to auscultation with good air entry, there is no wheezing rhonchi or rales appreciated no accessory muscle use, patient is speaking in com plete sentences-no chest wall tenderness to palpation CVS: Regular rate and rhythm S1-S2, no murmurs rubs or gallops, pulses are brisk and equal bilaterally ABD: Obese, soft, nondistended, nontender, no rebound guarding or rigidity, bowel sounds are normal, no pulsatile masses appreciated Extremities: Moving all extremities, no lower extremity tenderness or swelling noted, negative Homans' sign, pulses are brisk and equal bilaterally Skin: Normal in appearance without rash,pallor, petechiae or purpura Neuro: No focal deficits Constitutional Vital Signs, click to edit/add: Last Vital Signs Temp 98.2 F 04/26/24 02:13 Pulse 105 H 04/26/24 02:13 Resp 16 04/26/24 02:13 BP 140/68 04/26/24 04:26 Pulse Ox 98 04/26/24 02:13 O2 Del Method Room Air 04/26/24 02:13 Course Vital Signs Vital signs: Vital Signs Temperature 98.2 F 04/26/24 02:13 Pulse Rate 105 H 04/26/24 02:13 Respiratory Rate 16 04/26/24 02:13 Blood Pressure 148/94 H 04/26/24 02:13 Pulse Oximetry 98 04/26/24 02:13 Oxygen Delivery Method Room Air 04/26/24 02:13 Temperature 98.2 F 04/26/24 02:13 Pulse Rate 105 H 04/26/24 02:13 Respiratory Rate 16 04/26/24 02:13 Blood Pressure 140/68 04/26/24 04:26 Pulse Oximetry 98 04/26/24 02:13 Oxygen Delivery Method Room Air 04/26/24 02:13 MDM - Nausea/Vomiting/Diarrhea MDM Narrative Medical decision making narrative: This 24-year-old male presents for evaluation of a frontal headache that has been present for almost a week as well as nausea vomiting and some degree of diarrhea. He has a history of colitis and recently underwent colonoscopy in which she had a polypectomy. He has not had a fever. He denies any thunderclap presentation of the headache. He has no neck pain or stiffness. He does not have any skin rash. In emergency department he was uncomfortable but nontoxic in appearance. An IV was established and he was medicated with IV fluids, Zofran and Toradol. Reevaluation he states he is feeling somewhat better but still has some degree of a headache. He is negative for COVID-19. He has a normal lactic acid. His CBC is normal and hemoglobin is stable. Comprehensive metabolic profile and lipase had to be repeated due to lipemia and ultimately was sent to [facility]. I ordered him a repeat liter of normal saline, Reglan and Benadryl. Shortly after receiving that he request to be discharged home. He does not appear to be having any signs of akathisia but states he wants to go home and go to bed. He will be discharged home with a prescription for Reglan. He requested a note for the past week to be absent from work but I explained to him that I can only provide him with a note for work for the time that he was in the emergency department and 24 hours either before or after that but not a note for a week of missed work. Lab Data Labs: Lab Results 04/26/24 04/26/24 04/26/24 Range/Units 02:45 02:46 03:55 WBC 6.6 (4.0-11.0) 10^3/uL RBC 5.03 (4.70-6.10) 10^6/uL Hgb 14.9 (14.0-18.0) g/dL Hct 41.8 L (42.0-54.0) % MCV 83.1 (80.0-94.0) fL MCH 29.6 (25.9-34.0) pg MCHC 35.6 H (29.9-35.2) g/dL RDW 12.6 (11.0-15.0) % Plt Count 274 (150-450) 10^3/uL MPV 9.5 (9.5-13.5) fL Neut % (Auto) 48.2 (43.0-75.0) % Lymph % (Auto) 38.4 (20.5-60.0) % Sebastian % (Auto) 8.2 (1.7-12.0) % Eos % (Auto) 3.5 (0.9-7.0) % Baso % (Auto) 0.9 (0.2-2.0) % Neut # (Auto) 3.2 (1.4-6.5) 10^3/uL Lymph # (Auto) 2.5 (1.2-3.8) 10^3/uL Sebastian # (Auto) 0.5 (0.3-0.8) 10^3/uL Eos # (Auto) 0.2 (0.0-0.7) 10^3/uL Baso # (Auto) 0.1 (0.0-0.1) 10^3/uL Abs Immat Gran (auto) 0.05 H (0.00-0.03) 10^3/uL Imm/Tot Granulo (auto) 0.8 H (0.0-0.5) % Lactate 1.5 (0.4-2.0) mmol/L SARS-CoV-2 Ag (CV2AG) Negative (NEGATIVE) Discharge Plan Discharge Chief Complaint: Nausea/Vomiting/Diarrhea Clinical Impression: Acute viral syndrome Patient Disposition: Home, Self-Care Time of Disposition Decision: 04:47 Condition: Good Prescriptions / Home Meds: No Action No Known Home Medications Print Language: Macedonian Instructions: Viral Syndrome (ED) Referrals: AGUILA ALVARADO [Primary Care Provider] - 1 week
[2024-04-26] MEDS: 0.9 % SODIUM CHLORIDE 1,000 ML 1000 ML IV ×2 (02:52→04:23)
[2024-04-26] MEDS: ONDANSETRON PF 4 MG/2 ML VIAL IV (02:53)
[2024-04-26] MEDS: KETOROLAC TROMETHAMINE 30 MG/ML VIAL IVP (02:53)
[2024-04-26] MEDS: FAMOTIDINE/PF 20 MG/2 ML VIAL IV (02:53)
[2024-04-26 03:44] LABS: Lactate/Lactic Acid 1.5 mmol/L (0.4-2.0)
[2024-04-26 03:44] LABS: Internal Control Within Normal Limits; SARS-CoV-2 Ag NEGATIVE (NEGATIVE)
[2024-04-26 04:20] LABS: Basophils Absolute Auto 0.1 10^3/uL (0.0-0.1); Basophils Percent Auto 0.9 % (0.2-2.0); Eosinophils Absolute Auto 0.2 10^3/uL (0.0-0.7); Eosinophils Percent Auto 3.5 % (0.9-7.0); Hematocrit 41.8 % (42.0-54.0); Hemoglobin 14.9 g/dL (14.0-18.0); Immature Granulocytes Abs Auto 0.05 10^3/uL (0.00-0.03); Immature Granulocytes Pct Auto 0.8 % (0.0-0.5); Lymphocytes Absolute Auto 2.5 10^3/uL (1.2-3.8); Lymphocytes Percent Auto 38.4 % (20.5-60.0); Mean Corpuscular HGB Conc 35.6 g/dL (29.9-35.2); Mean Corpuscular Hemoglobin 29.6 pg (25.9-34.0); Mean Corpuscular Volume 83.1 fL (80.0-94.0); Mean Platelet Volume 9.5 fL (9.5-13.5); Monocytes Absolute Auto 0.5 10^3/uL (0.3-0.8); Monocytes Percent Auto 8.2 % (1.7-12.0); Neutrophils Absolute Auto 3.2 10^3/uL (1.4-6.5); Neutrophils Percent Auto 48.2 % (43.0-75.0); Platelet Count 274 10^3/uL (150-450); Red Blood Count 5.03 10^6/uL (4.70-6.10); Red Cell Distribution Width 12.6 % (11.0-15.0); White Blood Count 6.6 10^3/uL (4.0-11.0)
[2024-04-26] MEDS: METOCLOPRAMIDE HCL 10 MG/2 ML VIAL IVP (04:23)
[2024-04-26] MEDS: DIPHENHYDRAMINE HCL 50 MG/ML VIAL 25 MG IV (04:23)
[2024-04-26 04:26] VITALS: BP 140/68
[2024-04-27 11:17] LABS: BOX Test Reference Lab FRMC
== END 2024-04-26 04:55 | disposition home or self-care (01) ==
PROVIDERS: Emergency Provider Emergency Medicine; PCP Family Medicine
DX: B34.9 Viral infection, unspecified (principal); E66.9 Obesity, unspecified; Z20.822 Contact with and (suspected) exposure to COVID-19; Z68.41 Body mass index [BMI] 40.0-44.9, adult
CPT/HCPCS: 36415; 80053; 83605; 83690; 85025; 87811; 96361; 96374; 96375; 99284; J1200; J1885; J2405; J2765